=== PATIENT | female | born 1930 | race Caucasian/White ===

== ENCOUNTER → 2017-01-12 | Outpatient (CLI) | payer MEDICARE, OTHER ==
--- NOTE | 2017-01-12 12:11 | REP ---
REASON: Chronic obstructive pulmonary disease. COMPARISON: Multiple, the latest 11/27/2015. The cardiomediastinal silhouette is unchanged. Note is again made of Postop change in the left hilum status quo. The heart is not enlarged. The pleural angles are sharp. There is an unchanged left apical opacity which has been stable for many years. It has increased in size from 09/25/2012 to 09/24/2013 but has remained stable since that exam. No new abnormal lung field opacities have developed. There is no change in the osseous structures. IMPRESSION: Stable chest with findings as described above. Signed by Guerrero Alston DO 01/12/2017 02:58 P
== END ==
LOC: M RAD 11:12
PROVIDERS: ATTEND Internal Medicine Pulmonary Disease
DX: J44.9 Chronic obstructive pulmonary disease, unspecified (principal)

== ENCOUNTER → 2018-03-07 | Outpatient (CLI) | payer MEDICARE, OTHER | LOC: M RAD 10:58 | DX: J44.9 Chronic obstructive pulmonary disease, unspecified (principal) | CPT/HCPCS: 71046 ==

== ENCOUNTER → 2018-12-20 | Outpatient (CLI) | payer MEDICARE, OTHER ==
[~2018-12-20] MED LIST: ASPI81TA26 PO; ATEN25TA PO; BREO1INH3 PO; INCR1INH INH; PRAV40TA2 PO; PROAAER10 INH; TRIA37.53 PO
--- NOTE | 2018-12-20 14:19 | REP ---
CHEST, TWO VIEWS: Two views of the chest are performed and compared to multiple prior exams, most recently 03/09/2018. The ill-defined left apical opacity continues to gradually increase in size compared to multiple prior exams. No definite abnormality seen in the right lung. The heart is normal in size. There is calcification of the thoracic aorta. Left hilar metallic clips are present. There are degenerative changes of the spine. IMPRESSION: Continued gradual increase in size of left apical opacity. Consider repeat CT of the chest. Electronically Signed by Sarthak Neumann MD 12/20/2018 03:25 P
== END ==
LOC: M RAD 12:10
PROVIDERS: ATTEND Internal Medicine Pulmonary Disease
DX: J44.9 Chronic obstructive pulmonary disease, unspecified (principal)

== ENCOUNTER → 2019-01-09 | Outpatient (CLI) | payer MEDICARE, OTHER ==
--- NOTE | 2019-01-12 08:53 | REP ---
PET/CT: History: Restaging adenocarcinoma left upper lobe. Initial diagnosis in 2004 status post left upper lobectomy and mediastinal lymphadenectomy. Status post adjuvant chemotherapy. Comparisons: Comparison PET-CT study September 23, 2011. Comparison chest CT study October 05, 2013. Most recent comparison chest x-ray December 20, 2018. TECHNIQUE: 63 minutes following the intravenous injection of a 9.70 mCi dose of F-18 FDG, three-dimensional PET scintigraphy is acquired from the skull base to the proximal thighs. Triplanar noncontrast CT scanning is acquired through the same anatomic range for attenuation correction, and image registration with scan parameters optimized to minimize radiation exposure to the patient. PET scintigraphy and CT datasets were fused and displayed on a workstation with multiplanar and projection display capability. PET/CT Findings: There is an infiltrative ill-defined pleural-based opacity in the superior and posterior aspect of the left hemithorax which is hypermetabolic. This is 3.6 cm in greatest transverse diameter, significantly larger than on the October 05, [address] study, and displays maximum standard uptake value of 10.79. There is adjacent pleural thickening but there is no evidence of rib destruction or overt extrapleural extension. No other abnormal hypermetabolic uptake is seen in the chest. Head and neck soft tissues are unremarkable. Normal variant uptake is seen at the glottis. There is some non hypermetabolic arthritic uptake at the shoulders. 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 A hiatal hernia is noted. In the abdomen and pelvis, normal hepatic, splenic, gastrointestinal, and genitourinary FDG accumulation is seen. No abnormal hypermetabolic uptake is seen. Incidental CT findings include diverticulosis, granulomatous lymph node calcification, and surgical absence of the gallbladder. No abnormal adrenal uptake. Impression: The posterosuperior pleural-based left lower lobe lesion seen on chest x-rays is hypermetabolic and suspicious for recurrent or new lung malignancy. The patient is status post left upper lobectomy. No other abnormal hypermetabolic uptake is seen. Electronically Signed by Herrera Thrasher MD 01/12/2019 10:39 A
== END ==
LOC: M PLARAD 13:13
PROVIDERS: ATTEND Internal Medicine Hematology & Oncology
DX: R91.8 Other nonspecific abnormal finding of lung field (principal); Z90.2 Acquired absence of lung [part of]; Z85.118 Personal history of other malignant neoplasm of bronchus and lung
CPT/HCPCS: 78815; A9552

== ENCOUNTER → 2019-01-26 | Outpatient (CLI) | payer MEDICARE, OTHER ==
[~2019-01-26] MED LIST changes: +LIDOCAINE 1% MDV 20ML VIAL As Ordered ONE
--- NOTE | 2019-01-26 14:25 | REP ---
Chest x-ray: Single view. History: Status post left upper thoracic needle biopsy under CT guidance. Rule out pneumothorax. Comparison study December 20, 2018. Findings: The pleural based opacity which was the biopsy target is again seen in the left apex. There is no evidence of pneumothorax. Lung hall remain otherwise clear. Heart size is borderline. There are post thoracotomy clips in the mediastinum on the left. Impression: No complication identified. Electronically Signed by Herrera Thrasher MD 01/26/2019 02:16 P
--- NOTE | 2019-01-26 17:28 | REP ---
CT-guided left lobe lung biopsy The procedure is performed by MARICHUY Boyd, under the personal supervision of Dr. Thrasher. The patient has a history of an infiltrative ill-defined pleural-based opacity in the superior and posterior aspect of the left hemithorax measuring 3.6 cm in greatest diameter on the PET/CT dated 01/09/2019. The risks and benefits of the procedure were explained to the patient and informed consent was obtained both verbally and written. Directly prior to the start of the procedure, a formal timeout was done in the exam room. The left upper lobe lung was localized using CT guidance. Skin was prepped and draped in the usual sterile fashion. 7 ml of 1% lidocaine was used as a local anesthetic. Using CT guidance a 19/20 gauge coaxial needle biopsy system was inserted and advanced into the nodule. 4 core biopsy samples were obtained and sent to the lab. CT images obtained directly after the biopsy show no evidence of pneumothorax. After the appropriate amount of monitored convalescence the patient was discharged from the department. Reviewed by MARICHUY Mosqueda 01/26/2019 03:37 P Electronically Signed by Herrera Thrasher MD 01/26/2019 05:18 P
== END ==
LOC: M RADPRO 12:29
PROVIDERS: ATTEND Internal Medicine Hematology & Oncology
DX: C34.92 Malignant neoplasm of unspecified part of left bronchus or lung (principal); Z88.8 Allergy status to other drugs, medicaments and biological substances

== ENCOUNTER → 2019-02-08 | Outpatient (CLI) | payer MEDICARE, OTHER ==
[~2019-02-08] MED LIST changes: -LIDOCAINE 1% MDV 20ML VIAL As Ordered ONE
--- NOTE | 2019-02-08 12:32 | RADONC ---
RADIATION ONCOLOGY CONSULTATION NOTE DATE: 02/08/2019 CHART NUMBER: [id number] DIAGNOSIS: Left adenocarcinoma of the lung. STAGE: I B, T2a, N0, M0 ECOG PERFORMANCE STATUS: 0 CONSULTATION NOTE: Ms. 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 HISTORY OF PRESENT ILLNESS: The patient was initially diagnosed with a moderately differentiated adenocarcinoma of the left upper lobe and underwent a lobectomy and mediastinal lymph node dissection on 06/18/2004. Pathology at that time revealed a moderately differentiated adenocarcinoma measuring 3.5 cm x 3 cm x 2 cm. Peribronchial lymph nodes and mediastinal lymph nodes were negative for malignancy. The patient received postoperative chemotherapy for four cycles, which consisted of carboplatin and Taxol. She also received Taxotere. The chemotherapy was completed in August of 2004. The patient has been followed by medical oncology since then. Going back at least 5 years or more, there has been a small area of pleural thickening in the left posterior superior hemithorax. I have personally reviewed a CT scan done in 2013 and the area was present at that time. More recently, the region was found to be increasing in size and a PET scan was done on 01/09/2019. This revealed a 3.6 cm area in the superior posterior aspect of the left hemithorax, which was hypermetabolic with an SUV value of 10.79. There was adjacent pleural thickening but no evidence of rib destruction or overt extra pleural extension. On 01/26/2019, the patient underwent a biopsy of this area and pathology revealed a moderately differentiated adenocarcinoma. Pulmonary function tests are scheduled for today following this consultation. The patient is also scheduled to be seen by our thoracic surgeon, Dr. Kemp, later today for consultation as well. The patient does report that she gets short of breath and has an inhaler. PAST MEDICAL HISTORY: The patient's past medical history is positive for her previous lung cancer in 2004 as mentioned above. She also has history of arthritis and cataracts. She had a cholecystectomy in 2018. ALLERGIES: The patient is allergic to TAXOL. SOCIAL HISTORY: The patient has smoked 1-1/2 half packs of cigarettes per day for well over 40 years. She quit in 1996. She does not abuse alcohol. FAMILY HISTORY: The patient's family history is positive for mother with some type of malignancy. REVIEW OF SYSTEMS: The patient's review of systems is positive for shortness of breath where she sometimes uses an inhaler. She also has some hearing loss. Her review of systems is otherwise noncontributory. She denies nausea, vomiting, fevers, chills, night sweats, diplopia, headaches, anxiety or depression, anorexia, weight loss, visual disturbances, chest pain, urinary or bowel difficulties, bone pain, or neurological problems. PHYSICAL EXAMINATION: The patient is a well-developed, well-nourished, 88-year-old white female, in no acute distress. HEENT exam is normocephalic, atraumatic. Extraocular movements are intact. There is no palpable cervical, supraclavicular, infraclavicular, axillary, or inguinal lymphadenopathy present. Lungs are clear to auscultation and percussion. Heart has a regular rate and rhythm. Abdomen is benign with no hepatosplenomegaly, masses, or tenderness. Skeletal examination reveals no tenderness to pressure or percussion of the bony skeleton. Extremities reveal no clubbing, cyanosis, or edema. Neurologic exam is grossly intact, as is the remainder of the physical examination. ASSESSMENT: I had a lengthy discussion with this patient with regards to her therapeutic options. The patient's present lesion appears to have been there for quite some time. It is now apparently growing slowly but definitely growing and becoming hypermetabolic. We now have a documentation of malignancy. Whether or not this is a recurrence of her original cancer or a new primary is unknown, but either way we are now 15-16 years out since her original treatment and therefore, I believe this should be managed as a new primary malignant. I do not at this time have a copy of the patient's pulmonary functions, which have not been done yet. They will be done later today. I strongly suspect she would not be considered a surgical candidate considering her advanced age and shortness of breath. In addition, the patient has had a previous lobectomy and therefore, we are not dealing with a de agustin issue. I am referring the patient to be consulted at [facility] for an expert opinion with regards to SBRT. I am somewhat concerned of the proximity of this lesion to her ribs and have made the patient aware that SBRT may put her at greater risk for rib fracture. Considering her age and other limitations to either standard external beam radiation therapy and surgery, I will defer of course to the expert opinion of the radiation oncologists at [facility] with regards to her eligibility for treatment. I do not believe at this point that a rib risk is an absolute contraindication, but again I will defer to their experience. Thank you for allowing us to participate in the care of this very pleasant woman. Once again in summary, she is scheduled to see the thoracic surgeon later today. Pulmonary functions are also scheduled for later today and we are setting her up to be seen by the radiation oncologists at [facility] for consideration of SBRT. If she is deemed not a candidate for SBRT, the radiation oncologist at [facility] will be referring her back to me for re-discussion. Thank you for allowing us to participate in the care of this very pleasant woman. As always, warm regards. cc: MD Pete Fontaine MD David Rechlin, DO, [facility] John Barros MD
== END ==
LOC: M ONCR 08:46
PROVIDERS: ATTEND Radiology Radiation Oncology
DX: C34.92 Malignant neoplasm of unspecified part of left bronchus or lung (principal)

== ENCOUNTER → 2019-02-08 | Outpatient (CLI) | payer MEDICARE, OTHER ==
--- NOTE | 2019-02-08 15:18 | PFTRPT ---
Height: 60.00 Inches Weight: 164.00 Lbs BSA: 1.72 Diagnosis: J44.9 DATE OF PROCEDURE: 02/08/2019 ORDERED BY: Dr. Dayton Kemp Spirometry: Pre and post bronchodilator study of excellent technical quality. Forced vital capacity mildly elevated. FEV1 out of proportion. Obstructive index is, therefore, reduced. Flow Volume Loop: Expiratory limb of the flow volume loop does suggest flow rate limitation. No significant bronchodilator response is identified. Lung Volumes: Total lung capacity normal. Residual volume is in proportion. Diffusing Capacity: Diffusing capacity, although reduced, is borderline in correction for alveolar volume. Hemoglobin: Hemoglobin acceptable at 14.3. Airway Mechanics: Airway resistance mildly elevated with a concomitant decrease in airway conductance. IMPRESSION: At least mild obstructive ventilatory impairment with diffusing capacity impairment. No bronchodilator response. Please correlate clinically. MTDD
== END ==
LOC: M CARPUL 10:43
PROVIDERS: ATTEND Thoracic Surgery (Cardiothoracic Vascular Surgery)
DX: J44.9 Chronic obstructive pulmonary disease, unspecified (principal)
CPT/HCPCS: 88738; 94060; 94726; 94729; G0463

== ENCOUNTER → 2020-07-11 | Outpatient (CLI) | payer MEDICARE, OTHER ==
[~2020-07-11] MED LIST changes: +AZIT-12 PO
--- NOTE | 2020-07-11 14:58 | RADONC ---
Radiation Oncology Hx/FUP Radiation Oncology Hx/FUP Date of Service: Jul 11, 2020 Pt Identifier Alfreda Rouse is a 89 year old female former smoker seen for a followup visit today at the department of radiation oncology for a history of NSCLC of the left lung. She was diagnosed in 2003 with a [id number] NSCLC of the JI s/p lobectomy with Dr. Kemp. She then underwent SBRT to a LLL stage I NSCLC in 2019 at [facility] with Dr. Rush. She is referred back to [facility] for consideration of additional SBRT to a biopsy proven 5mm NSCLC (EGFR+ adenocarcinoma) of the LLL as we now offer SBRT treatment. Diagnosis/Treatment History Oncologic History 06/18/04 Underwent JI lobectomy for [id number] adenocarcinoma. She received adjuvant chemotherapy completed in August 2004. She was under surveillance with medical oncology and was noted ~2013 to have an evolving lesion in the left posterior superior lower lobe, it grew to 3.6 cm as of 2018 and was biopsied confirming adenocarcinoma. She was referred to Dr. Rush @ [facility] for SBRT which she completed on 03/23/19 50 Gy in [address] 05/23/20 she was noted to have a growing ~5mm lesion in the inferior left lower lobe amongst several additional 2-3mm nodules (scan reviewed and annotated by Dr. White 07/11/20). She underwent biopsy of the nodule which returned EGFR+ adenocarcinoma. A fiducial was placed. She was referred back to [facility] because we now offer SBRT and she desired to avoid travel to [place]. Interval History Feels well, lives alone. Fully independent at home. No pain. No cough, FERMIN, or fatigue. Reports she noted no side effects with prior course of SBRT. Appetite good, weight stable. Current Therapy Pending Stage [id number] stage IA1 NSCLC EGFR+ LLL Prior [id number] stage IB NSCLC LLL 2019 s/p SBRT Prior [id number] stage IB NSCLC JI 2004 s/p lobectomy Social History: Former smoker 50+ pack year. Quit 1996 Non-drinker Allergies / Meds Allergies: Coded Allergies: No Known Allergies (Unverified , 12/18/18) Home Meds Reported Medications Azithromycin (Azithromycin) 250 Mg Tablet, 250 MG PO DAILY for 5 Days 02/26/20 Fluticasone/Vilanterol (Breo Ellipta 200-25 Mcg INH) 1 Inh Inh, 1 PUFF PO DAILY for 30 Days, #1 EA 07/03/18 Umeclidinium [place] (Incruse Ellipta) 62.5 Mcg/Inh Inh, 1 PUFF INH DAILY, #1 PUFF 07/03/18 Albuterol Sulfate (Proair Hfa) 108 Mcg/Act Aer, 2 PUFF INH Q4-6HP PRN for wheezing for 21 Days, #1 INHALER 07/03/18 Aspirin (Aspirin EC) 81 Mg Tab, 81 MG PO DAILY for pain for 30 Days, #30 TAB 07/03/18 Pravastatin Sodium (Pravastatin Sodium) 40 Mg Tab, 40 MG PO QPM for 30 Days, #30 TAB 07/03/18 Atenolol (Atenolol) 25 Mg Tab, 25 MG PO DAILY for 30 Days, #30 TAB 07/03/18 Triamterene/Hydrochlorothiazid (Triamterene-Hctz 37.5-25 mg Cp) 1 Cap Cap, 1 CAP PO DAILY for 30 Days, #30 CAP 07/03/18 Review of Systems Review of Systems Constitutional: Denies: Chills, Fever, Malaise, Weight Loss Eyes: Denies: Pain, Vision change HEENT: Denies: Head Aches, Dysphagia, Post Nasal Drip, Sore Throat Skin: Denies: Rash Pulmonary: Denies: Dyspnea, Cough, Pleuritic Chest Pain Cardiovascular: Denies: Chest Pain, Palpitations Gastrointestinal: Denies: Nausea, Vomiting, Abdominal Pain Genitourinary: Denies: Dysuria, Frequency Hematologic: Denies: Bruising, Bleeding Excessively Endocrine: Denies: Polydipsia, Heat Intolerance, Cold Intolerance Musculoskeletal: Reports: Joint pain; Denies: Neck pain, Back pain Neurological: Denies: Weakness, Numbness Psych: Reports: Mood Normal; Denies: Anxiety, Depression, Memory Issues Physical Examination Vital Signs Ht 61" Wt 154 lb T 97 P 78 RR 18 BP 193/94 O2 90% Pain 0 Fatigue 0 General Exam: Positive: Alert, Cooperative; Negative: No Acute Distress Eye Exam: Positive: PERRLA, EOMI ENT EXAM: Positive: Atraumatic, Pharynx Normal Neck Exam: Positive: Supple; Negative: Lymphadenopathy Chest Exam: Positive: Clear to auscultation, Normal air movement; Negative: Rales, Wheezing Heart Exam: Positive: Rate Normal, Regular Rhythm Abdomen Exam: Positive: Normal bowel sounds, Soft; Negative: Tenderness Extremity Exam: Negative: Edema Skin Exam: Positive: Nl turgor and temperature Neuro Exam: Positive: Normal Gait, Normal Speech, Cranial Nerves 3-12 NL Psych Exam: Positive: Mental status NL, Mood NL; Negative: Anxiety Diagnostic and Laboratory Diagnostic Review Radiologic images, relevant labs and pathology reports were personally reviewed and discussed with Ms. Rouse. Assessment and Plan Impression Assessment Ms. Rouse is a 89 year old female former smoker seen for a followup visit today at the department of radiation oncology for a history of NSCLC of the left lung. She was diagnosed in 2003 with a [id number] NSCLC of the JI s/p lobectomy with Dr. Kemp. She then underwent SBRT to a LLL stage I NSCLC in 2019 at [facility] with Dr. Rush. She is referred back to [facility] for consideration of additional SBRT to a biopsy proven 5mm NSCLC (EGFR+ adenocarcinoma) of the LLL as we now offer SBRT treatment. She is hypertensive in the office today. Repeat vitals better 150/76. Said she was nervous. She is quite fit and independent at home. She has a 5mm biopsy proven lesion in her lower LLL. This is amenable to SBRT. I recommend 60 Gy in 5 fractions with DCA planning and a free-breathing 4DCT simulation. She has 9 additional indeterminate nodules in the 1-3mm size range, some solid some ground glass. These can be followed on subsequent CT scans. I would only treat them if growing. I discussed that in the future if any of these show consistent growth I would treat empirically and spare her another biopsy, which wouldn't change my management. Her current biopsy proven lesion is EGFR+ (per path update from [facility]) so in the future targeted therapy would be an option if she were to develop progression not amenable to local therapy. We reviewed the side effects of treatment including fatigue, chest wall toxicity and ~5-8% pneumonitis risk. She wants to proceed with treatment. Simulation can occur in the next 1-2 weeks. Performance Status ECOG 0 Plan SBRT to LLL lesion 60 Gy in 5 fractions Simulation in the next 1-2 weeks Ms. Rouse was encouraged to call with questions or concerns in the interim period. IAN WHITE MD Jul 11, 2020 14:58
== END ==
LOC: M ONCR 12:38
PROVIDERS: ATTEND General Practice
DX: C34.32 Malignant neoplasm of lower lobe, left bronchus or lung (principal)

== ENCOUNTER → 2020-08-11 | Outpatient (RCR) | payer MEDICARE, OTHER | LOC: M ONCR 07-21 13:45 | PROVIDERS: ATTEND General Practice | DX: C34.32 Malignant neoplasm of lower lobe, left bronchus or lung (principal) ==

== ENCOUNTER 2020-08-15 14:40 | Outpatient (RCR) | payer MEDICARE, OTHER | END 2020-09-11 | LOC: M ONCR 14:40 | PROVIDERS: ATTEND General Practice | DX: C34.32 Malignant neoplasm of lower lobe, left bronchus or lung (principal) ==

== ENCOUNTER → 2020-10-29 | Outpatient (CLI) | payer MEDICARE, OTHER ==
[2020-10-29 13:59] LABS: ALBUMIN 3.3 GM/DL (3.2-5.2); ALT/SGPT 24 U/L (12-78); BILIRUBIN,TOTAL 0.4 MG/DL (0.2-1.0); BLOOD UREA NITROGEN 23 MG/DL (7-18); CALCIUM LEVEL 8.6 MG/DL (8.8-10.2); CARBON DIOXIDE LEVEL 28 MEQ/L (21-32); CHLORIDE LEVEL 106 MEQ/L (98-107); CREATININE FOR GFR 0.92 MG/DL (0.55-1.30); GLOMERULAR FILTRATION RATE > 60.0 (>32); GLUCOSE, FASTING 119 MG/DL (70-100); POTASSIUM SERUM 4.1 MEQ/L (3.5-5.1); SODIUM LEVEL 141 MEQ/L (136-145); TOTAL PROTEIN 6.4 GM/DL (6.4-8.2)
== END ==
LOC: M ONCM 12:14 → EDSTATUS 13:10
PROVIDERS: ATTEND General Practice
DX: C34.92 Malignant neoplasm of unspecified part of left bronchus or lung (principal)

== ENCOUNTER → 2020-11-05 | Outpatient (CLI) | payer MEDICARE, OTHER ==
[~2020-11-05] MED LIST changes: +ISOVUE-370 76% 100ML VIAL As Ordered ONE
--- NOTE | 2020-11-05 15:34 | REP ---
INDICATION: F/U LUNG CA. COMPARISON: CT 05/23/2020 and [facility] TECHNIQUE: Bolus of 75 mL Isovue 370 scanning through the chest with coronal and sagittal reconstructions. FINDINGS: Posteriorly in the left upper lung zone is a zone of the consolidative opacity with air bronchograms and stranding to the pleura adjacent to the aortic arch at its posterior margin. Its appearance and size are unchanged. Remainder of the left lung field is clear. Left hilar and perihilar surgical clips from prior left upper lobectomy. There is a surgical clip in the deep sulcus left lower lobe on image 70 and image 67 has a 4 mm nodule in the subpleural left lower lobe posterior basal segment. This is unchanged. There is some curvilinear scarring anteriorly left midlung zone abutting the mediastinal pleura extending to the anterior chest wall pleura. Subpleural atelectatic change in the medial segment of the right middle lobe is unchanged along with a 4 mm nodule pleural based in that same segment on image 65, also unchanged. Some cylindrical bronchiectatic changes are noted in both lower lung zones greater on the right some minor curvilinear scarring in the right lower lung zone and subtle ground grass opacity on image 56 on the superior segment of the right lower lobe also stable. Couple of other small right middle lobe nodules are stable. Some coronary artery calcifications are noted. The aorta has calcifications without aneurysm or dissection. The main, right and left pulmonary arteries are prominent centrally suggesting pulmonary artery hypertension. No filling defects or vessel cut off there or in the proximal lobar arteries. Small hiatal hernia is again noted unchanged. No pathologic sized lymphadenopathy in the mediastinum, hilar regions, axillary or supraclavicular areas. The upper abdomen shows that portion of liver, pancreas, adrenal glands and upper pole of the left kidney to be intact there is no splenomegaly or focal lesion. Gallbladder surgically absent. Bone windows show marginal osteophytes throughout the thoracic spine with small degenerative endplate spurs and a few levels with vacuum phenomenon but no compression fracture or focal lesion. Visualized ribs with some postsurgical change on the left, stable no focal lesion fracture on an acute basis. Scapulae, humeral heads and medial clavicles along with sternum and manubrium intact. IMPRESSION: 1. Pleural-based chronic consolidative opacity left upper lung zone as described without new or progressive the changes. Patient is status post a prior lobectomy with compensatory hyperinflation of the lower lobe. 2. There are few scattered bilateral lung nodules that are unchanged from the prior exam. Areas of fibrotic changes also stable. These nodules may be presumed to be metastatic and warrant continued follow-up. No other significant or new finding. <Electronically signed by Rajan Gutierrez > 11/05/20 [id number]
== END ==
LOC: M RAD 10:57
PROVIDERS: ATTEND General Practice
DX: C34.32 Malignant neoplasm of lower lobe, left bronchus or lung (principal)
CPT/HCPCS: 71260; Q9967